=== PATIENT | female | born 1990 | race Caucasian/White ===

== ENCOUNTER 2018-11-02 11:55 | Emergency (ER) | payer OTHER ==
[2018-11-02 12:28] LABS: BASOPHILS # (AUTO) 0.1 10^3/uL (0.0-0.1); BASOPHILS % (AUTO) 0.5 %; EOSINOPHILS # (AUTO) 0.3 10^3/uL (0.0-0.7); EOSINOPHILS % (AUTO) 1.9 %; HGB - HEMOGLOBIN 13.3 g/dL (12.0-16.0); LYMPHOCYTES # (AUTO) 3.8 10^3/uL (1.5-3.5); LYMPHOCYTES % (AUTO) 28.9 %; MEAN CORPUSCULAR HGB CONC 33.4 g/dL (32.0-36.0); MEAN CORPUSCULAR VOLUME 86.9 fL (81.0-99.0); MEAN PLATELET VOLUME 9.1 fL (7.9-10.8); MONOCYTES # (AUTO) 0.8 10^3/uL (0.0-1.0); MONOCYTES % (AUTO) 6.3 %; NEUTROPHILS # (AUTO) 8.1 10^3/uL (1.5-6.6); NEUTROPHILS % (AUTO) 61.9 %; PLT - PLATELET COUNT 388 10^3/uL (130-450); RED BLOOD COUNT 4.58 10^6/uL (4.20-5.40); WHITE BLOOD COUNT 13.2 x10^3/uL (4.8-10.8)
[2018-11-02 12:41] LABS: ALBUMIN 4.4 g/dL (3.2-5.5); ALBUMIN/GLOBULIN RATIO 1.6 (1.0-2.2); BILIRUBIN,TOTAL 0.5 mg/dL (0.2-1.0); CALCIUM 9.6 mg/dL (8.5-10.3); CREATININE 0.6 mg/dL (0.4-1.0); TOTAL PROTEIN 7.2 g/dL (6.7-8.2)
[2018-11-02 12:43] LABS: BILIRUBIN,URINE NEGATIVE (NEGATIVE); GLUCOSE, URINE (UA) NEGATIVE (NEGATIVE); KETONES,URINE (UA) NEGATIVE (NEGATIVE); LEUKOCYTE ESTERASE, URINE NEGATIVE (NEGATIVE); NITRITE,URINE NEGATIVE (NEGATIVE); OCCULT BLOOD,URINE NEGATIVE (NEGATIVE); PH,URINE 6.5 PH (5.0-7.5); PROTEIN,URINE NEGATIVE (NEGATIVE); UROBILINOGEN,URINE 0.2 (NORMAL) E.U./dL (NORMAL)
[2018-11-02 12:44] LABS: CLARITY,URINE CLEAR (CLEAR); HCG UR QUAL NEGATIVE
--- NOTE | 2018-11-02 12:45 | ED Physician Documentation ---
PD HPI ABD PAIN - Stated complaint Stated Complaint: R SIDE PX - Chief complaint Chief Complaint: Abd Pain - History obtained from History obtained from: Patient (28-year-old woman, not sexually active, active duty in the [employer]. No history of abdominal surgeries. She is irregular after her Nexplanon placed 2 years ago. She complains of 2 months worth of intermittent stabbing right lower quadrant and suprapubic pain. Initially it was very intermittent, maybe a couple of times a week, today it is more constant. No associated vaginal bleeding, discharge. No urinary complaints, she is slightly constipated but did have a fairly normal bowel movement today. She does have somewhat chronic intermittent diarrhea.) Review of Systems Ten Systems: 10 systems reviewed and negative Constitutional: denies: Fever, Chills Eyes: denies: Loss of vision, Decreased vision Nose: denies: Rhinorrhea / runny nose, Congestion Cardiac: denies: Chest pain / pressure, Palpitations Respiratory: denies: Dyspnea, Cough GI: reports: Abdominal Pain, Nausea (chronic "b/c I am always hungry"), Constipation, Diarrhea. denies: Vomiting : denies: Dysuria, Frequency, Hesitancy PD PAST MEDICAL HISTORY - Past Medical History Past Medical History: No - Past Surgical History Past Surgical History: No - Present Medications Home Medications: Ambulatory Orders Medication Instructions Recorded Confirmed No Known Home Medications 12/30/15 12/30/15 - Allergies Allergies/Adverse Reactions: Allergies Allergy/AdvReac Type Severity Reaction Status Date / Time No Known Drug Allergies Allergy Verified 11/02/18 12:10 - Social History Does the pt smoke?: No Smoking Status: Never smoker Does the pt drink ETOH?: No Does the pt have substance abuse?: No - Immunizations Immunizations are current?: Yes - POLST Patient has POLST: No PD ED PE NORMAL - Vitals Vital signs reviewed: Yes - General General: Alert and oriented X 3, No acute distress - HEENT HEENT: PERRL, EOMI - Neck Neck: Supple, no meningeal sign, No bony TTP - Cardiac Cardiac: RRR, No murmur - Respiratory Respiratory: No respiratory distress, Clear bilaterally - Abdomen Abdomen: Other (Minimal suprapubic and right pelvic tenderness without guarding or rebound) - Back Back: No CVA TTP, No spinal TTP - Derm Derm: Normal color, Warm and dry - Extremities Extremities: No edema, No calf tenderness / cord - Neuro Neuro: Alert and oriented X 3, Normal speech Results - Vitals Vitals: Vital Signs - 24 hr 11/02/18 12:07 Temperature 36.5 C Heart Rate 70 Respiratory 16 Rate Blood Pressure 142/80 H O2 Saturation 99 Oxygen O2 Source Room air - Labs Labs: Laboratory Tests 11/02/18 11/02/18 11/02/18 12:21 12:21 12:21 WBC 13.2 H RBC 4.58 Hgb 13.3 Hct 39.8 MCV 86.9 MCH 29.0 MCHC 33.4 RDW 12.0 Plt Count 388 MPV 9.1 Neut # (Auto) 8.1 H Lymph # (Auto) 3.8 H Warren # (Auto) 0.8 Eos # (Auto) 0.3 Baso # (Auto) 0.1 Absolute Nucleated RBC 0.00 Nucleated RBC % 0.0 Sodium 141 Potassium 3.9 Chloride 106 Carbon Dioxide 27 Anion Gap 8.0 BUN 14 Creatinine 0.6 Estimated GFR (MDRD) 120 Glucose 85 Calcium 9.6 Total Bilirubin 0.5 AST 23 ALT 21 Alkaline Phosphatase 56 Total Protein 7.2 Albumin 4.4 Globulin 2.8 Albumin/Globulin Ratio 1.6 Lipase 40 Urine Color YELLOW Urine Clarity CLEAR Urine pH 6.5 Ur Specific [place] <=1.005 Urine Protein NEGATIVE Urine Glucose (UA) NEGATIVE Urine Ketones NEGATIVE Urine Occult Blood NEGATIVE Urine Nitrite NEGATIVE Urine Bilirubin NEGATIVE Urine Urobilinogen 0.2 (NORMAL) Ur Leukocyte Esterase NEGATIVE Ur Microscopic Review NOT INDICATED Urine Culture Comments NOT INDICATED Urine HCG, Qual NEGATIVE - Rads (name of study) PELVIC SONO Radiology: EMP read contemporaneously Departure - Departure Disposition: 01 Home, Self Care Clinical Impression: Multiple developmental ovarian cysts Condition: Good Record reviewed to determine appropriate education?: Yes Instructions: ED Cyst Ovarian Comments: FOLLOWUP WITH YOUR PCM [place]. YOUR ULTRASOUND TODAY SHOWED MULTIPLE SMALL RIGHT OVARIAN CYSTS AND SOME PELVIC FREE FLUID LIKELY REPRESENTING A RUPTURED OVARIAN CYST. DISCUSS ALTERNATIVE CONTROL METHOD, OTHER THAN NEXPLANON WITH YOUR PCM. RETURN FOR NEW OR WORSENING SYMPTOMS TAKE MOTRIN FOR THE PELVIC PAIN Forms: Activity restrictions
--- NOTE | 2018-11-02 14:41 | Ultrasound Report ---
Reason: pelvic pain, R Procedure Date: 11/02/2018 Accession Number: [id number] / [id number] Procedure: US - Pelvic w/Transvag+Doppler Comp CPT Code: FULL RESULT: EXAM: PELVIC ULTRASOUND EXAM DATE: 11/02/2018 02:25 PM. CLINICAL HISTORY: Right pelvic pain. COMPARISON: None. TECHNIQUE: Realtime transabdominal pelvic scan performed to identify the uterus and adnexa and as an overview of other pelvic structures, followed by transvaginal scan to provide greater detail of the uterus and adnexa, with static image documentation. FINDINGS: Uterus: 7.9 x 3.4 x 4.8 cm, volume 66.3 cc. Anteverted position. Normal overall size and echotexture. Masses: None. Endometrium: 7 mm. Normal. Cervix: Unremarkable. Right Ovary: 4.1 x 1.5 x 3.2 cm, volume 10.6 cc. Normal echotexture and blood flow. Subcentimeter cyst with a peripheral predominance. Left Ovary: 2.9 x 1.4 x 2.1 cm, volume 4.3 cc. Normal echotexture and blood flow. Scattered subcentimeter cysts without discrete peripheral predominance. Free Fluid: Small volume of free fluid in the posterior cul-de-sac. Other: Vascular flow to both ovaries. IMPRESSION: Peripheral predominance of right ovarian subcentimeter cyst. While nonspecific, this can be seen in PCOS. Small volume of free fluid in the posterior cul-de-sac. RADIA
[2018-11-02 15:05] VITALS: BP 138/78
== END 2018-11-02 15:06 | disposition home or self-care (01) ==
LOC: ED 11:55
DX: N83.201 Unspecified ovarian cyst, right side (principal)
CPT/HCPCS: 36415; 76830; 76856; 80053; 81001; 81003; 81025; 83690; 85025; 87086; 93975; 99284

== ENCOUNTER 2020-04-10 21:20 | Emergency (ER) | payer OTHER ==
[2020-04-10 21:31] VITALS: BP 144/81
[2020-04-10] MEDS ORDERED: KETOROLAC 30 MG/ML VIAL IM STA (21:46)
--- NOTE | 2020-04-10 21:51 | ED Physician Documentation ---
History of Present Illness - Stated complaint Stated Complaint: F - Chief complaint Chief Complaint: Abd Pain - History obtained from History obtained from: Patient - Additonal information Additional information: 30-year-old woman with past medical history of depression, gastroesophageal reflux disease, presents with cramping constant aching nonradiating suprapubic pain unrelieved with high-dose ibuprofen since having an IUD placed this morning, gradual in onset. Patient denies fevers, vaginal bleeding or discharge. She does endorse some mild vaginal spotting. Has not used any pads. Review of Systems Ten Systems: 10 systems reviewed and negative PD PAST MEDICAL HISTORY - Past Surgical History Past Surgical History: No - Present Medications Home Medications: Ambulatory Orders Medication Instructions Recorded Confirmed Lidocaine Patch 5% [Lidoderm Patch] 1 patch TOP BID 04/10/20 04/10/20 Omeprazole 40 mg PO DAILY 04/10/20 04/10/20 buPROPion [Wellbutrin Sr] 75 mg PO DAILY 04/10/20 04/10/20 - Allergies Allergies/Adverse Reactions: Allergies Allergy/AdvReac Type Severity Reaction Status Date / Time No Known Drug Allergies Allergy Verified 04/10/20 21:31 - Social History Does the pt smoke?: No Smoking Status: Never smoker Does the pt drink ETOH?: No Does the pt have substance abuse?: No - Immunizations Immunizations are current?: Yes - POLST Patient has POLST: No PD ED PE NORMAL - Vitals Vital signs reviewed: Yes - General General: Alert and oriented X 3, No acute distress - HEENT HEENT: Atraumatic, PERRL, EOMI - Neck Neck: Supple, no meningeal sign - Cardiac Cardiac: RRR - Respiratory Respiratory: No respiratory distress, Clear bilaterally - Abdomen Abdomen: Non tender, Non distended - Female Female : Reading Assistant present (RN), Other (normal external female genitalia. iud strings emerging from cervical os. no cmt or adnexal ttp. small amount of brown translucent fluid in vault) - Back Back: No CVA TTP - Derm Derm: Normal color - Extremities Extremities: No deformity - Neuro Neuro: Alert and oriented X 3 - Psych Psych: Normal mood, Normal affect Results - Vitals Vitals: Vital Signs - 24 hr 04/10/20 04/10/20 21:28 21:45 Temperature 36.4 C L Heart Rate 71 Respiratory 17 17 Rate Blood Pressure 144/81 H O2 Saturation 100 Oxygen O2 Source Room air PD MEDICAL DECISION MAKING - ED course ED course: 30-year-old woman Presents status post IUD placement this morning, complains of persistent pain keeping her from going to sleep tonight. Abdomen nontender. Patient declined pelvic exam. Toradol shot given with improvement in pain. She requested a work note which I obliged. return precautions given[place] Departure - Departure Disposition: 01 Home, Self Care Clinical Impression: Pelvic pain, IUD check up Condition: Good Instructions: Control IUD Comments: You were seen in the emergency department for abdominal pain related to your IUD placement. You should continue to take ibuprofen 800 mg every 6 hours as needed for pain. We gave you a Toradol shot in the emergency department and you should hold off on ibuprofen for 6 hours after the shot. Make sure to get lots of rest tomorrow and [place] Return to the emergency department if you have worsening pain, new or worsening symptoms or other concerns. Forms: Activity restrictions
== END 2020-04-10 22:35 | disposition home or self-care (01) ==
LOC: ED 21:20
DX: R10.2 Pelvic and perineal pain (principal); T83.84XA Pain due to genitourinary prosthetic devices, implants and grafts, initial encounter; Y84.8 Other medical procedures as the cause of abnormal reaction of the patient, or of later complication, without mention of misadventure at the time of the procedure; K21.9 Gastro-esophageal reflux disease without esophagitis
CPT/HCPCS: 96372; 99283; 99284